=== PATIENT | female | born 1955 | race Caucasian/White ===

== ENCOUNTER 2018-01-06 16:32 | Emergency (ER) | payer BC ==
[2018-01-06 17:00] VITALS: BP 146/98
--- NOTE | 2018-01-06 17:50 | UC ---
Hand/Wrist HPI - HPI Summary HPI Summary: 62-year-old woman comes in with a chief complaint of left fifth finger PIP swelling and pain. Started yesterday. No known trauma. Pain is worse overnight. Resting it made the pain better. No fevers or chills feels well otherwise. DOES have some arthritis in the right hand. - History Of Current Complaint Chief Complaint: UCUpperExtremity Stated Complaint: FINGER INJURY Time Seen by Provider: 01/06/18 17:07 Hx Last Menstrual Period: post Pain Intensity: 0 - Allergies/Home Medications Allergies/Adverse Reactions: Allergies Allergy/AdvReac Type Severity Reaction Status Date / Time aspirin Allergy Severe bruising Verified 01/06/18 17:08 cefaclor Allergy Severe Hives Verified 01/06/18 17:08 ciprofloxacin [From Cipro] Allergy Severe Itching Verified 01/06/18 17:08 codeine Allergy Severe Headache Verified 01/06/18 17:08 exemestane [From Aromasin] Allergy Severe Itching Verified 01/06/18 17:08 levofloxacin [From Levaquin] Allergy Severe Itching Verified 01/06/18 17:08 NSAIDS (Non-Steroidal Allergy Severe bursts Verified 01/06/18 17:08 Anti-Inflamma platlets propoxyphene Allergy Severe Headache Verified 01/06/18 17:08 tamoxifen Allergy Severe rash and Verified 01/06/18 17:08 wt gain ENVIRONMENTAL/SEASONAL Allergy SNEEZING,CO Uncoded 01/06/18 17:08 HAYFEVER NGESTION PMH/Surg Hx/FS Hx/Imm Hx Endocrine History: Diabetes - Surgical History Surgical History: Yes Surgery Procedure, Year, and Place: 1970 TONSILLECTOMY/ADENOIDECTOMY, [facility] [place]. 1973 RIGHT KNEE SURGERY, [facility] [place]. 1999 CYSTOCELE / RECTOCELE REPAIR, [facility] [place]. 2005 LAPAROSCOPIC CHOLECYSTECTOMY, [facility] [place]. 2010 DILATION, CURETTAGE, FIBROIDECTOMY, [facility] [place]. 2013 RIGHT CARPAL TUNNEL RELEASE, [facility] [place]. 1988 AND 1998 SINUS SURGERY, [facility]. tonsills and adnoids - Family History Known Family History: Negative: Diabetes - Social History Alcohol Use: Rare Substance Use Type: None Substance Use Comment - Amount & Last Used: vicodin Smoking Status (MU): Former Smoker Type: Cigarettes Amount Used/How Often: 1/2 pk/day - Immunization History Most Recent Influenza Vaccination: + 5 years ago Most Recent Tetanus Shot: "four years ago" Most Recent Pneumonia Vaccination: never Review of Systems All Other Systems Reviewed And Are Negative: Yes Constitutional: Positive: Negative Skin: Positive: Negative Eyes: Positive: Negative ENT: Positive: Negative Respiratory: Positive: Negative Cardiovascular: Positive: Negative Gastrointestinal: Positive: Negative Motor: Positive: Negative Neurovascular: Positive: Negative Musculoskeletal: Positive: Other: - SEE HPI Neurological: Positive: Negative Psychological: Positive: Negative Is Patient Immunocompromised?: No Physical Exam Triage Information Reviewed: Yes Appearance: Well-Appearing, No Pain Distress, Well-Nourished Vital Signs: Initial Vital Signs Temp 98.9 F 01/06/18 16:56 Pulse 100 01/06/18 16:56 Resp 16 01/06/18 16:56 BP 146/98 01/06/18 16:56 Pulse Ox 96 01/06/18 16:56 Vital Signs Reviewed: Yes Eye Exam: Normal Eyes: Positive: Conjunctiva Clear Neck exam: Normal Neck: Positive: Supple Respiratory: Positive: No respiratory distress Musculoskeletal: Positive: Other: - Left fifth finger PIP is swollen and minimally tender to palpation. Is not erythematous. There is a slight decrease in full flexion at the joint. Extension is normal. Capillary refill is normal. No sensation deficit. Neurological Exam: Normal Neurological: Positive: Alert, Muscle Tone Normal Psychological Exam: Normal Psychological: Positive: Age Appropriate Behavior Skin Exam: Normal Hand/Wrist Course/Dx - Course Course Of Treatment: Order Information: FINGER LEFT SMALL. Accession Number: [id number]. CPT: 66933. Indication: Left fifth finger injury. 3 views of left fifth finger demonstrates degenerative changes of the proximal. interphalangeal joint. No other bone or joint abnormality is identified. IMPRESSION: Degenerative changes of the proximal interphalangeal joint of the fifth digit. without fracture. . <Electronically signed by Pearl Aldridge MD in OV> 01/06/18 3416. I discussed the x-ray report with patient. At this time patient almost has no pain and she declined a splint. Plan is to rest it and ice it if needed and follow up with her doctor if not completely improved get reevaluated sooner if worse. - Differential Dx/Diagnosis Provider Diagnoses: ARTHRITIS LEFT 5TH FINGER PIP Discharge - Sign-Out/Discharge Documenting (check all that apply): Patient Departure All imaging exams completed and their final reports reviewed: Yes - Discharge Plan Condition: Stable Disposition: HOME Patient Education Materials: Arthritis (ED), Finger Sprain (ED) Referrals: Elyssa Self MD [Primary Care Provider] - Additional Instructions: FOLLOW UP WITH YOUR DOCTOR IF NOT COMPLETELY IMPROVED. GET RECHECKED FOR ANY WORSENING OF YOUR CONDITION OR QUESTIONS OR CONCERNS. - Billing Disposition and Condition Condition: STABLE Disposition: Home
== END 2018-01-06 18:15 | disposition home or self-care (01) ==
LOC: UCEAST 16:32
DX: M19.042 Primary osteoarthritis, left hand (principal); Z87.891 Personal history of nicotine dependence; Z88.5 Allergy status to narcotic agent; Z88.8 Allergy status to other drugs, medicaments and biological substances
CPT/HCPCS: 73140; 99212; G0463

== ENCOUNTER 2018-09-20 05:45 | Day surgery (SDC) | payer BC ==
--- NOTE | 2018-08-26 21:22 | HP ---
CC: Dr. Self at [facility] * ADMISSION HISTORY AND PHYSICAL: DATE OF ADMISSION: 09/20/18 ATTENDING SURGEON: Los Olson MD * (ALESSANDRA Murphy, dictating). CHIEF COMPLAINT: Umbilical hernia. HISTORY OF PRESENT ILLNESS: This is a 63-year-old female who has undergone prior laparoscopic cholecystectomy as well as laparoscopic appendectomy. Beginning about a year and a half ago, she noticed a small bulge at the umbilicus. This has gradually increased in size and in recent months, she has noticed an occasional ache that is in the area usually related to clothing or direct pressure. She has not had any symptoms to suggest incarceration or strangulation. She has not had any change in GI or function. She was seen in the office by Dr. Olson on 07/07/18. His exam at that time confirmed the presence of a small reducible nontender 1 to 2 cm umbilical hernia. He has discussed with her the indications for surgery, the risks, benefits, and alternatives and she would like to proceed as scheduled with open repair of umbilical hernia with possible mesh. PAST MEDICAL HISTORY: 1. Insulin resistance. 2. Allergies. 3. Asthma. 4. Migraine headaches. 5. Morbid obesity. 6. Hypercholesterolemia. 7. Peripheral edema. 8. Sleep disordered breathing (on CPAP). 9. She had undergo right breast lumpectomy for atypical ductal hyperplasia. She was treated both with tamoxifen and aromatase inhibitor for breast cancer prevention given her strong family history of breast cancer, but she did not tolerate these (her sisters with breast cancer history have been tested for and found to be negative for BRCA). 10. The patient also has chronic neck pain, which predisposes her to migraine headaches. PAST SURGICAL HISTORY: Previous surgeries include: 1. Tonsillectomy and adenoidectomy remotely. 2. Laparoscopic cholecystectomy in 2011. 3. Laparoscopic appendectomy in 2014. 4. Wide excision, right breast atypical ductal hyperplasia in 2008. 5. Left breast biopsy for benign disease. 6. Uterine surgery for repair of cystocele and rectocele and subsequent excision of an uterine polyp. 7. She has undergo carpal tunnel release bilaterally. 8. Right knee surgery as a young adult. 9. Sinus surgery x2. 10. She describes having a "nutcracker esophagus" and has undergone balloon dilation for same. She reports no surgical or anesthesia problems. CURRENT MEDICATIONS: 1. Cyclobenzaprine 10 mg b.i.d. 2. Metformin extended release 500 mg 2 tablets b.i.d. 3. Xyzal 5 mg once daily. 4. Montelukast 10 mg once daily. 5. Flonase 2 sprays each nostril once daily. 6. Dulera 2 puffs b.i.d. 7. Rosuvastatin 10 mg daily. 8. Triamterene/hydrochlorothiazide 37.5/25 two capsules once daily. 9. Maxalt 10 mg p.r.n. for migraines. 10. Hydrocodone 5/500 one tablet every 4 hours p.r.n. for migraines (uses rarely). 11. ProAir MDI 2 puffs p.r.n. for wheezing (uses a couple times a week). She also takes the following supplements: 1. B12. 2. Vitamin D. 3. Krill oil. 4. Acidophilus. DRUG ALLERGIES: ASPIRIN and NSAIDS (result in extensive ecchymosis), DARVON and CODEINE (cause migraines) (she does tolerate hydrocodone), CECLOR, LEVAQUIN , and CIPRO (all cause hives and rash), TOPAMAX (bone pain), TAMOXIFEN and AROMASIN (severe itching and bruising). FAMILY HISTORY: Negative for anesthesia problems or bleeding history. She does have a sister who had a DVT following surgery (the patient herself has been tested for hereditary hypercoagulability and was negative). SOCIAL HISTORY: The patient is . 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 She is former smoker who quit in 1976. She drinks alcohol rarely and denies other recreational drug use. REVIEW OF SYSTEMS: General: No recent constitutional symptoms or acute illnesses. She is currently being seen by dietitian for weight loss with resultant 5 pounds weight loss. HEENT: No acute problems reported. Cardiovascular: She states that she is not treated specifically for hypertension, though her blood pressure is mildly elevated today. No chest pain or palpitations. No history of heart murmur. Respiratory: No recent exacerbations of her asthma. No recent cough or shortness of breath. GI: No problems reported. Colonoscopy done within the past 2 years and has been done on an every 5 year basis because of family history. No problems reported. : No problems reported. SHINGLE TRIMMER: Her breast exam and mammogram as well as pelvic exam and Pap smear have all been done within the past year and reportedly normal. Endocrine: She is treated for insulin resistance. She states that her most recent A1c was 6.1. She denies any history of thyroid dysfunction. Neuro/Psych: History of migraine headaches and chronic neck pain. PHYSICAL EXAMINATION GENERAL: Well-nourished, well-developed obese female, in no acute distress. VITAL SIGNS: Height 69 inches, weight 285 pounds, BMI 42. Blood pressure 138/ 90, pulse 72, respirations 16. HEENT: Pupils are equal and round, reactive. EOMs intact. No conjunctival pallor. Oropharynx: Teeth in good repair. No intraoral lesions. NECK: No lymphadenopathy, thyromegaly, or masses. LUNGS: Clear to auscultation. No rales or wheezes. HEART: Regular rate and rhythm. No murmur appreciated. BREASTS: Not examined. ABDOMEN: Soft, nontender to palpation. No palpable masses or organomegaly with the exception of a visible bulge, which is nontender and reducible at the umbilicus, consistent with umbilical hernia. GENITALIA: Not done. RECTAL: Not done. BACK: No spinous process or CVA tenderness. EXTREMITIES: No edema. NEUROLOGICAL: Grossly intact. SKIN: Warm and dry. No suspicious rashes or lesions. IMPRESSION: Umbilical hernia. PLAN: Open repair of umbilical hernia with possible mesh. ALESSANDRA MURPHY [id number]/[facility] #: [id number] [facility] HEALTHCAREAlvin
[~2018-09-20 05:45] MED LIST: Buffered Lidocaine 1% SYRIN* 1 ML/SYRINGE INTRADERM ONE
[2018-09-20] MEDS ORDERED: Lactated Ringers 1000 ML Bag* 1,000 ML IV SCH (06:00)
[2018-09-20] MEDS ORDERED: Clindamycin 900 MG IVPREMIX(* 900 MG/50 ML SDV IV ONE (06:10)
[2018-09-20] MEDS ORDERED: Buffered Lidocaine 1% SYRIN* 1 ML/SYRINGE INTRADERM ONE (06:10)
[2018-09-20] MEDS ORDERED: Lidocaine 1% INJ* 10 MG/ML 30 ML SDV ONE (07:07)
[2018-09-20] MEDS ORDERED: Bupivacaine 0.5% W/EPI SDV* 30 ML VIAL ONE (07:07)
[2018-09-20] MEDS ORDERED: Midazolam* 1 MG/ML 5 ML VIAL (5 MG) ONE (07:27)
[2018-09-20] MEDS ORDERED: fentaNYL* 50 MCG/ML 2 ML VIAL (100 MCG VIAL) ONE (07:39)
[2018-09-20] MEDS ORDERED: Ondansetron INJ* 2 MG/ML VIAL IV PRN (08:15)
[2018-09-20] MEDS ORDERED: oxyCODONE/Acetamin 5/325 MG* TAB PO PRN (08:15)
[2018-09-20] MEDS ORDERED: fentaNYL* 50 MCG/ML 2 ML VIAL (100 MCG VIAL) IV PRN (08:15)
[2018-09-20] MEDS ORDERED: Naloxone* 0.4 MG/ML 1 ML VIAL IV PRN (08:15)
--- NOTE | 2018-09-20 08:36 | OP ---
Operative Report - Blank - Operative Report Date of Operation: 09/20/18 Note: Brief Post Operative Note Preoperative dx: umbilical hernia Postoperative dx: umbilical hernia Procedure: open repair of umbilical hernia with mesh Anesthesia: local MAC Surgeon: Wesley Assist: DI Bhat EBL: None Specimen: None Fluids: 1 liter Lactated Ringers Drains: none Findings: see report
[2018-09-20] MEDS ORDERED: oxyCODONE/Acetamin 5/325 MG* TAB ONE (09:09)
[2018-09-20 09:46] VITALS: BP 134/90
--- NOTE | 2018-09-20 21:18 | OP ---
CC: Elyssa Self MD * DATE OF OPERATION: 09/20/18 - SDS DATE OF : 57 SURGEON: Los Olson MD. VENDING MACHINE MECHANIC: ALESSANDRA Brizuela student. ANESTHESIOLOGIST: Julio Kelley MD ANESTHESIA: Local MAC. PRE-OP DIAGNOSIS: Umbilical hernia. POST-OP DIAGNOSIS: Umbilical hernia. OPERATIVE PROCEDURE: Open umbilical hernia repair with mesh. ESTIMATED BLOOD LOSS: Minimal. IV FLUIDS: Crystalloid. SPECIMEN: None. DRAINS: None. COMPLICATIONS: None. COUNTS: The instruments, needle and sponge counts were correct. DESCRIPTION OF PROCEDURE: The patient was brought to the operating room and placed on the table supine. Sequential compression devices were placed on both lower extremities. The patient was administered intravenous anesthesia. The abdomen was prepped and draped in the usual sterile fashion. She received appropriate intravenous antibiotics. A time-out was performed. Local anesthetic was infiltrated periumbilically as a field block. A curvilinear infraumbilical incision was created. Sharp dissection was used to elevate the umbilical stalk off the abdominal wall. The hernia sac was immediately entered and it contained omental fat that was reduced. The edges of the hernia defect were defined and this was a 2 cm defect. It was determined that mesh repair would be performed and the Ventrio medium size patch was used. The patch was placed within the peritoneal cavity, drawn up through the defect using the straps and the straps were sutured to the superior and inferior fascia with interrupted 0 Ethibond suture. The straps were cut and then the defect was closed with two interrupted sutures of 0 Ethibond in a [id number] fashion. Umbilical stalk was reapproximated to the anterior abdominal wall and the wound was closed in two layers using 3-0 Vicryl for the deep dermis and 4-0 Monocryl for the skin in a running subcuticular fashion. Steri-Strips and pressure dressings were applied. The patient tolerated the procedure well and was transferred to Recovery stable. [id number]/[facility] #: [id number] MTDD
== END 2018-09-20 10:00 | disposition home or self-care (01) ==
LOC: OR 05:45
PROVIDERS: ATTEND Surgery
DX: K42.9 Umbilical hernia without obstruction or gangrene (principal); G47.33 Obstructive sleep apnea (adult) (pediatric); E11.8 Type 2 diabetes mellitus with unspecified complications; Z79.84 Long term (current) use of oral hypoglycemic drugs; J45.909 Unspecified asthma, uncomplicated; E66.01 Morbid (severe) obesity due to excess calories; E78.00 Pure hypercholesterolemia, unspecified; R60.0 Localized edema
CPT/HCPCS: A9270-GY; C1781; J2250; J3010